=== PATIENT | male | born 1975 | race Caucasian/White ===

== ENCOUNTER 2017-08-25 22:20 | Emergency (ER) | payer SELFPAY ==
[~2017-08-25] VITALS: Ht 170.2 cm; Wt 105.0 kg
[~2017-08-25 22:20] MED LIST: HYDR-2768 PO; HYDR-3534 PO; MULTTAB50 PO; VALI10TA PO
[2017-08-25 22:26] VITALS: BP 160/90; PULSE 108; RESP 18; TEMP 97.9; O2SAT 98
[2017-08-26] MEDS ORDERED: MEDR4PAK PO (00:03)
[2017-08-26] MEDS ORDERED: BACL10TA PO (00:03)
[2017-08-26] MEDS ORDERED: LIDO1PAD52 TOPICAL (00:03)
--- NOTE | 2017-08-26 00:12 | PD ---
HPI Chief Complaint: Back/ Neck Pain or Injury Time Seen by Provider: 23:49 Travel History International Travel<30 days: No Contact w/Intl Traveler<30days: No Traveled to known affect area: No History of Present Illness HPI 42-year-old male with history of chronic lower back pain presents for evaluation of worsening lower back pain. Reports a 5 days ago he was bending over in the kitchen and he felt an increased sharp pain in his right lower back. Pain is a sharp pain, constant, worse when sitting. The patient is currently prescribed [place] by his primary care physician for his chronic lower back pain. He has been using the [place] as well as ibuprofen but the pain persists and this is what prompted evaluation today. He reports that the pain occasionally radiates down the right leg. He denies any bowel or bladder incontinence, saddle anesthesia, abdominal pain, nausea or vomiting. He reports that his primary care physician is referring him to a panel edge painter and he has his first appointment in September. No other complaints at this time. PFSH Past Medical History Asthma: Yes Anxiety: Yes Diminished Hearing: No Tetanus Vaccination: Unknown Influenza Vaccination: Yes Past Surgical History Ear Surgery: Yes (bilat tube) Tonsillectomy: Yes Social History Alcohol Use: Yes (occasionally) Tobacco Use: No Substance Use: No Allergies-Medications (Allergen,Severity, Reaction): Coded Allergies: shellfish derived (Unverified Allergy, Severe, 08/25/17) Reported Meds & Prescriptions Reported Meds & Active Scripts Active Lidocaine Patch 12 HR (Lidocaine) 5 % Patch 1 Patch TOPICAL DAILY PRN Remove patch after 12 hours Baclofen 10 Mg Tab 10 Mg PO Q8HR 10 Days Medrol Dosepak (Methylprednisolone) 4 Mg Dspk 4 Mg PO DIRECTED Per Pharmacist direction Reported Multi Vitamin Mens (Multiple Vitamin) Mens Tab 1 Tab PO DAILY Hctz (Hydrochlorothiazide) 25 Mg Tab 25 Mg PO DAILY Lortab 7.5 mg/325 mg (Hydrocodone/Acetaminophen 7.5 mg/325 mg) 1 Tab 1 Tab PO Q4H PRN Valium (Diazepam) 10 Mg Tab 10 Mg PO Q6H PRN Review of Systems Except as stated in HPI: all other systems reviewed are Neg Physical Exam Narrative GENERAL: Well-developed well-nourished male in no acute distress SKIN: Warm and dry. HEAD: Atraumatic. Normocephalic. EYES: Pupils equal and round. No scleral icterus. No injection or drainage. ENT: No nasal bleeding or discharge. Mucous membranes pink and moist. NECK: Trachea midline. No JVD. CARDIOVASCULAR: Regular rate and rhythm. No murmur appreciated. RESPIRATORY: No accessory muscle use. Clear to auscultation. Breath sounds equal bilaterally. GASTROINTESTINAL: Abdomen soft, non-tender, nondistended. Hepatic and splenic margins not palpable. MUSCULOSKELETAL: No obvious deformities. There is no reproducible tenderness to palpation along the thoracic or lumbar midline spine or paravertebral musculature. 5 out of 5 muscle strength in lower extremities bilaterally. Negative straight leg raise bilaterally. Distal pulses and sensation are preserved. NEUROLOGICAL: Awake and alert. No obvious cranial nerve deficits. Motor grossly within normal limits. Normal speech. Data Data Last Documented VS Vital Signs Date Time Temp Pulse Resp B/P (MAP) Pulse Ox O2 Delivery O2 Flow Rate FiO2 08/25/17 22:26 97.9 108 18 160/90 (113) 98 Room Air Orders Orders Ketorolac Inj (Toradol Inj) (08/26/17 00:15) Orphenadrine Inj (Norflex Inj) (08/26/17 00:15) [facility] Medical Decision Making Medical Screen Exam Complete: Yes Emergency Medical Condition: Yes Medical Record Reviewed: Yes Differential Diagnosis Herniated nucleus pulposis, piriformis syndrome, muscle spasm, muscle strain Narrative Course History and examination are consistent with lumbosacral radiculopathy exacerbated after bending over 5 days ago. He has no red flag symptoms. The plan is to treat him with a short course of glucocorticoids and muscle relaxants. He is encouraged to follow-up with pain management as scheduled. Diagnosis Primary Impression: Lumbosacral radiculopathy Additional Instructions: Medication as needed. Do not drive or drink alcohol with taking baclofen. Avoid strenuous activity or heavy lifting. Follow-up with primary care physician and panel edge painter as scheduled. Return for any emergent medical conditions. Med/Other Pt SpecificInfo: Prescription(s) given Scripts Lidocaine Patch 12 HR (Lidocaine Patch 12 HR) 5 % Patch 1 PATCH TOPICAL DAILY Y for PAIN, #1 BOX 0 Refills Remove patch after 12 hours Prov: Arsh Longo MD 08/26/17 Baclofen (Baclofen) 10 Mg Tab 10 MG PO Q8HR for 10 Days, TAB 0 Refills Prov: Arsh Longo MD 08/26/17 Methylprednisolone Dosepak (Medrol Dosepak) 4 Mg Dspk 4 MG PO DIRECTED, #1 DSPK 0 Refills Per Pharmacist direction Prov: Arsh Longo MD 08/26/17 Disposition: 01 DISCHARGE HOME Condition: Stable Raul Turpin Aug 26, 2017 00:12
[2017-08-26] MEDS ORDERED: ORPHENADRINE INJ 60 MG/2 ML AMP IM ONE (00:15)
[2017-08-26] MEDS ORDERED: KETOROLAC TROMETHAMINE 60 MG/2 ML (IM) VIAL IM ONE (00:15)
== END 2017-08-26 01:02 | disposition home or self-care (01) ==
LOC: NEPD 22:20
DX: M54.17 Radiculopathy, lumbosacral region (principal)
CPT/HCPCS: 96372; 99283; J1885; J2360